=== PATIENT | female | born 1980 | race Caucasian/White ===

== ENCOUNTER 2016-10-16 17:11 | Emergency (ER) | payer OTHER ==
[~2016-10-16] VITALS: Ht 165.1 cm; Wt 92.0 kg
[~2016-10-16 17:11] MED LIST: ACARBOSE25 MG PO; ALAVERT10 MG PO; ALBUTEROL SULF8.5 GM IH; ALOSETRON HCL0.5 MG PO; ALPRAZOLAM0.25 M2 PO; ALPRAZOLAM0.5 MG PO; AMBIEN10 M1 PO; AMBIEN10 MG PO; AMBIEN5 MG PO; AYR SALINE NA14.1 GM BOTH NARES; BENTYL10 MG PO; BENTYL20 MG PO; BUSPIRONE HCL10 MG PO; CARAFATE1 GM PO; COMPAZINE10 MG PO; CORTIZONE-10 PL57 GM TP; CYCLOBENZAPRINE10 MG PO; D H E SC; DAYTRANA1 EACH TD; DEPAKOTE ER (E500 M1 PO; DICYCLOMINE HCL20 MG PO; DURAGESIC12 MCG TD; EFFEXOR XR150 MG PO; ENDOCET 5-3251 EACH PO; ERGOCALCIF50000 UNIT PO; Effexor XR PO; FETZIMA80 MG PO; FIORICET 50-301 EACH PO; FIORICET 50-321 EAC1 PO; FLAGYL500 MG PO; FLEXERIL10 MG PO; FLOVENT 22120 INHALA IH; HYDROXYZINE PAM25 MG PO; INDERAL10 MG PO; JUNEL FE 1.5-31 EACH PO; KEPPRA750 MG PO; KLOR-CON M2020 MEQ PO; Keppra PO; LAMOTRIGINE100 MG PO; LANSOPRAZOLE30 MG PO; LEVETIRACETAM750 MG PO; LEVOTHYROXINE50 MCG PO; LOMOTIL TABLET1 EACH PO; LOTRONEX0.5 MG PO; MACROBID100 MG PO; MELATONIN5 M1 PO; METHADONE5 MG PO; METOCLOPRAMIDE10 MG PO; MINIPRES1 MG PO; MIRALAX17 GM PO; MONTELUKAST SOD10 MG PO; NAPROSYN500 MG PO; NASOGEL SALIN28.4 ML NS; OXYCODONE HCL10 MG PO; OXYCODONE HCL15 MG PO; OXYCODONE HCL5 MG PO; OXYCONTIN15 MG PO; PERCOCET 5/31 TABLET PO; PERCOCET 7.51 TABLE1 PO; PREVACID SOLUTA30 MG PO; PRILOSEC20 MG PO; PRISTIQ50 MG PO; PROCHLORPERAZIN10 MG PO; PROMETHAZINE HC25 M1 PO; Proventil,Ventolin H IH; RANITIDINE HCL300 M1 PO; RANITIDINE HCL300 MG PO; RELPAX40 MG PO; RIZATRIPTAN10 MG PO; ROXICET 5-3251 EACH PO; ROXICODONE5 MG PO; SINGULAIR10 MG PO; SUMATRIPTA6 MG/0.5 M SQ; SUMATRIPTAN SU100 MG PO; SYNTHROID25 MCG PO; TEMAZEPAM30 MG PO; TIROSINT50 MCG PO; TOPAMAX100 MG PO; TOPIRAGEN100 MG PO; TRAZODONE HCL150 MG PO; VENLAFAXINE H37.5 M3 PO; Voltaren PO; XANAX0.5 MG PO; XANAX1 MG PO; ZANTAC300 MG PO; ZOFRAN4 MG PO; ZOLPIDEM TARTRA10 MG PO; ZOLPIDEM TARTRAT5 MG PO
[2016-10-16 17:34] LABS: HEMATOCRIT 40.6 % (36.0-46.0); MCH 31.2 PG (29.0-34.0); MCV 94.4 FL (83-99); MEAN PLAT.VOLUME 8.9 uM^3 (9.5-12.4); PLATELET COUNT 314 K/uL (156-360); RBC DIS.WIDTH-CV 12.8 % (11.8-14.6); RBC DIS.WIDTH-SD 43.1 % (39-53); WHITE BLOOD COUNT 7.1 K/uL (4.1-10.2)
[2016-10-16 17:46] LABS: CHLORIDE 112 mEq/L (99-109); POTASSIUM 3.9 mEq/L (3.7-5.4); SODIUM 142 mEq/L (136-147)
[2016-10-16 17:47] LABS: ADD MIUA? YES; BILIRUBIN NEGATIVE; BLOOD NEGATIVE; COLOR YELLOW ((YELLOW)); GLUCOSE (STRIP) NEGATIVE; KETONES NEGATIVE; LEUKOCYTES TRACE; NITRITE NEGATIVE; PROTEIN (STRIP) NEGATIVE; SPECIFIC GRAVITY 1.014 (1.000-1.030); UROBILINOGEN 0.2 MG/DL (0.2-1.0)
[2016-10-16 17:48] LABS: GLUCOSE 83 mg/dL (70-99)
[2016-10-16 17:49] LABS: ANION GAP 8 MEQ/L (2-14)
[2016-10-16 17:50] LABS: TOTAL BILIRUBIN 0.3 mg/dL (0.0-1.0)
[2016-10-16 17:52] LABS: ALKALINE PHOSPHATASE 74 IU/L (3-129); GFR ESTIMATE (CALCULATED) > 59 mL/min/
[2016-10-16 17:53] LABS: UREA NITROGEN (BUN) 13 mg/dL (9-23)
[2016-10-16 18:00] LABS: QUANTITATIVE HCG < 4.0 MIU/ML
[2016-10-16 18:24] LABS: BACTERIA RARE /HPF; BUDDING YEAST 2+; EPITHELIAL CELLS 1+ /HPF; MUCUS TRACE /LPF; RED BLOOD CELLS 0-5 /HPF (0-5); UCUL ADDED? NO; WHITE BLOOD CELLS 0-5 /HPF (0-5)
[2016-10-16] MEDS ORDERED: BENTYL10 MG PO (21:53)
[2016-10-16] MEDS ORDERED: COLACE100 MG PO (21:53)
[2016-10-16 22:45] VITALS: BP 119/72
== END 2016-10-16 22:47 | disposition home or self-care (01) ==
LOC: EME 17:11
DX: R10.11 Right upper quadrant pain (principal); R10.31 Right lower quadrant pain; G89.29 Other chronic pain; R19.01 Right upper quadrant abdominal swelling, mass and lump; R19.03 Right lower quadrant abdominal swelling, mass and lump; Z85.05 Personal history of malignant neoplasm of liver; Z79.891 Long term (current) use of opiate analgesic
CPT/HCPCS: 74176; 80053; 81003; 84702; 85027; 99281; 99285

== ENCOUNTER 2017-10-17 06:02 | Emergency (ER) | payer OTHER ==
[~2017-10-17] VITALS: Ht 165.1 cm; Wt 91.3 kg
[~2017-10-17 06:02] MED LIST changes: +COLACE100 MG PO
[2017-10-17 06:39] LABS: APPEARANCE CLEAR ((CLEAR)); BILIRUBIN NEGATIVE; BLOOD NEGATIVE; COLOR YELLOW ((YELLOW)); GLUCOSE (STRIP) NEGATIVE; KETONES NEGATIVE; LEUKOCYTES NEGATIVE; NITRITE NEGATIVE; PROTEIN (STRIP) NEGATIVE; SPECIFIC GRAVITY 1.013 (1.000-1.030); UCUL ADDED? NO; UROBILINOGEN 0.2 MG/DL (0.2-1.0)
[2017-10-17 08:05] LABS: HEMATOCRIT 36.3 % (36.0-46.0); HEMOGLOBIN 12.1 G/DL (11.9-15.5); MCH 31.2 PG (29.0-34.0); MCHC 33.3 G/DL (30.0-36.0); MCV 93.6 FL (83-99); PLATELET COUNT 282 K/uL (156-360); RBC DIS.WIDTH-CV 12.6 % (11.8-14.6); RBC DIS.WIDTH-SD 43.1 % (39-53); RED BLOOD COUNT 3.88 M/uL (3.80-5.20); WHITE BLOOD COUNT 8.4 K/uL (4.1-10.2)
[2017-10-17 08:25] LABS: QUANTITATIVE HCG < 4.0 MIU/ML
[2017-10-17 08:49] LABS: ALBUMIN 3.6 G/DL (3.2-4.8); ALKALINE PHOSPHATASE 90 IU/L (3-129); ALT (GPT) 38 IU/L (3-49); AST (GOT) 83 IU/L (2-34); CHLORIDE 113 MEQ/L (99-109); CREATININE 0.8 MG/DL (0.6-1.3); GFR ESTIMATE (CALCULATED) > 59 mL/min/; GLUCOSE 104 mg/dL (70-99); LIPASE 9 U/L (1.0-51.0); POTASSIUM 3.3 MEQ/L (3.7-5.4); SODIUM 139 MEQ/L (136-147); TOTAL BILIRUBIN 0.4 MG/DL (0.0-1.0); TOTAL PROTEIN 6.7 G/DL (6.4-8.3); UREA NITROGEN (BUN) 10 mg/dL (9-23)
[2017-10-17 11:16] VITALS: BP 90/80
== END 2017-10-17 11:16 | disposition home or self-care (01) ==
LOC: EME 06:02
DX: R10.11 Right upper quadrant pain (principal); R11.0 Nausea; Z90.49 Acquired absence of other specified parts of digestive tract; Z87.442 Personal history of urinary calculi; Z85.05 Personal history of malignant neoplasm of liver; Z85.41 Personal history of malignant neoplasm of cervix uteri; Z90.710 Acquired absence of both cervix and uterus; Z91.041 Radiographic dye allergy status; Z79.891 Long term (current) use of opiate analgesic
CPT/HCPCS: 74177; 80053; 81003; 83690; 84702; 85027; 99281; 99285; J2405; J2930; J3010; J7030

== ENCOUNTER 2017-12-07 21:22 | Emergency (ER) | payer OTHER ==
[~2017-12-07] VITALS: Ht 165.1 cm; Wt 92.4 kg
[2017-12-07 21:57] LABS: HEMATOCRIT 38.9 % (36.0-46.0); HEMOGLOBIN 12.7 G/DL (11.9-15.5); MCH 31.4 PG (29.0-34.0); MCHC 32.6 G/DL (30.0-36.0); MCV 96.3 FL (83-99); PLATELET COUNT 282 K/uL (156-360); RBC DIS.WIDTH-CV 12.6 % (11.8-14.6); RBC DIS.WIDTH-SD 45.1 % (39-53); RED BLOOD COUNT 4.04 M/uL (3.80-5.20); WHITE BLOOD COUNT 7.5 K/uL (4.1-10.2)
[2017-12-07 22:11] LABS: ALBUMIN 3.9 g/dL (3.2-4.8)
[2017-12-07 22:12] LABS: CHLORIDE 112 mEq/L (99-109); POTASSIUM 3.5 mEq/L (3.7-5.4); SODIUM 142 mEq/L (136-147)
[2017-12-07 22:14] LABS: GLUCOSE 98 mg/dL (70-99); TOTAL PROTEIN 7.2 g/dL (6.4-8.3)
[2017-12-07 22:16] LABS: TOTAL BILIRUBIN 0.2 mg/dL (0.0-1.0)
[2017-12-07 22:17] LABS: ALKALINE PHOSPHATASE 57 IU/L (3-129)
[2017-12-07 22:18] LABS: CREATININE 0.8 mg/dL (0.6-1.3); GFR ESTIMATE (CALCULATED) > 59 mL/min/
[2017-12-07 22:19] LABS: AST (GOT) 16 IU/L (2-34); UREA NITROGEN (BUN) 11 mg/dL (9-23)
[2017-12-07 22:21] LABS: ALT (GPT) 11 IU/L (3-49)
[2017-12-07 22:29] LABS: QUANTITATIVE HCG < 4.0 MIU/ML
[2017-12-07 23:26] LABS: APPEARANCE CLOUDY ((CLEAR)); BILIRUBIN NEGATIVE; BLOOD NEGATIVE; COLOR YELLOW ((YELLOW)); GLUCOSE (STRIP) NEGATIVE; KETONES 5; LEUKOCYTES MODERATE; NITRITE NEGATIVE; PROTEIN (STRIP) 30; SPECIFIC GRAVITY 1.033 (1.000-1.030)
[2017-12-07 23:42] LABS: BACTERIA RARE /HPF; EPITHELIAL CELLS 1+ /HPF; MUCUS RARE /LPF; UCUL ADDED? NO; WHITE BLOOD CELLS 0-5 /HPF (0-5)
[2017-12-07 23:43] LABS: CALCIUM OXALATE CRYSTALS 2+ /HPF
[2017-12-08] MEDS ORDERED: MACROBID100 MG PO (00:48)
[2017-12-08 01:10] VITALS: BP 113/70
== END 2017-12-08 01:15 | disposition home or self-care (01) ==
LOC: EME 21:22
DX: N39.0 Urinary tract infection, site not specified (principal); M79.7 Fibromyalgia; G43.909 Migraine, unspecified, not intractable, without status migrainosus; R56.9 Unspecified convulsions; K58.9 Irritable bowel syndrome, unspecified; E55.9 Vitamin D deficiency, unspecified; Z87.442 Personal history of urinary calculi; Z85.41 Personal history of malignant neoplasm of cervix uteri; Z90.49 Acquired absence of other specified parts of digestive tract; Z90.710 Acquired absence of both cervix and uterus; Z86.73 Personal history of transient ischemic attack (TIA), and cerebral infarction without residual deficits; Z91.040 Latex allergy status; Z91.041 Radiographic dye allergy status; Z88.1 Allergy status to other antibiotic agents; Z88.6 Allergy status to analgesic agent; Z88.0 Allergy status to penicillin; Z88.5 Allergy status to narcotic agent; Z88.2 Allergy status to sulfonamides; Z88.8 Allergy status to other drugs, medicaments and biological substances
CPT/HCPCS: 74176; 80053; 81003; 84702; 85027; 99281; 99284; J1885